=== PATIENT | female | born 1965 | race American Indian/Alaskan Native ===

== ENCOUNTER 2016-06-17 21:01 | Emergency (ER) | payer OTHER ==
--- NOTE | 2016-06-18 02:21 | Emergency Department Report ---
HPI - General Chief Complaint: Skin Rash Time Seen by Provider: 06/18/16 02:06 - HPI HPI: 50-year-old female presents to ED complaining of skin rash times a couple of months. Patient states she was recently seen last month at [facility] for the same skin rash. Patient states rash was resolved for a while and then they came right back. Patient states she's been taking Benadryl and using hydrocortisone cream to no relief. She states rash is very itchy in her all over her entire arms and internal legs bilaterally. She denies taking any medication other than aspirin. She denies any other medical condition. She denies fever/chills/nausea/vomiting/abdominal pain/chest pain or any other problems. ED Past Medical Hx - Past Medical History Previous Medical History?: Yes Hx Hypertension: Yes Hx Congestive Heart Failure: No Hx Diabetes: No Hx Asthma: No Hx COPD: No Additional medical history: Uterine fibroids - Surgical History Past Surgical History?: Yes Additional Surgical History: hysterectomy - Social History Smoking Status: Never Smoker - Medications Home Medications: Home Medications Medication Instructions Recorded Confirmed Last Taken Type Cyclobenzaprine [Flexeril] 10 mg PO BID 03/01/16 03/01/16 Unknown History HYDROcodone/APAP 7.5-325 [[place] 1 each PO QDAY 03/01/16 03/01/16 Unknown History 7.5/325] Hydrochlorothiazide [Hctz] 12.5 mg PO QDAY 03/01/16 03/01/16 Unknown History Ibuprofen [Motrin] 800 mg PO Q8HR PRN 03/01/16 03/01/16 Unknown History Meloxicam [Mobic] 7.5 mg PO BID 03/01/16 03/01/16 Unknown History Ranitidine HCl [Heartburn Relief] 150 mg PO BID 03/01/16 03/01/16 Unknown History Tramadol HCl [traMADol ER 100 MG] 50 mg PO QDAY 03/01/16 03/01/16 Unknown History methOCARBAMOL [Robaxin TAB] 500 mg PO TID 03/01/16 03/01/16 Unknown History Aspirin [Aspirin TAB] 325 mg PO QDAY tablet 03/04/16 Unknown Rx Prednisone [predniSONE 10 mg 10 mg PO .TAPER #1 tab.ds.pk 06/18/16 Unknown Rx (6-Day Pack, 21 Tabs)] Zinc Oxide [Boudreauxs] 1 applic TP TID PRN #1 tube 06/18/16 Unknown Rx hydrOXYzine HCL [Atarax] 50 mg PO QHS #40 tablet 06/18/16 Unknown Rx ED Review of Systems ROS: Stated complaint: FULL BODY RASH Other details as noted in HPI Comment: All other systems reviewed and negative Eyes: denies: eye pain, eye discharge, vision change ENT: denies: ear pain, throat pain Gastrointestinal: denies: abdominal pain, nausea, diarrhea Skin: rash, lesions, change in color, pruritus. denies: change in hair/nails Physical Exam - Physical Exam Vital Signs: Vital Signs 06/17/16 22:00 Temperature 98.4 F Pulse Rate 88 Blood Pressure 145/82 O2 Sat by Pulse 99 Oximetry Physical Exam: GENERAL: Alert and oriented x3, no apparent distress, Normal Gait, atraumatic. HEAD: Head is normocephalic and a-traumatic. EYES: Extra ocular muscles are intact. Pupils are equal, round, and reactive to light and accommodation. EARS: symetrical, atraumatic, non tender, ear canal clear and moderate cerumen, tympanic membrance non inflamed. gross auditory nml bilaterally. NOSE: Nose symetrical, Nontender,Nares appeared normal. MOUTH:Mouth is well hydrated and without lesions. Tonsils nonerythematous or swollen, Uvula midline, Tongue not elevated. Mucous membranes are moist. Posterior pharynx clear, no exudate or lesions. Patent airways. NECK: Supple. Non edematous, No carotid bruits. No lymphadenopathy or thyromegaly. LUNGS: Symetrical with respiration, No wheezing, no rales or crackles, CTAB. HEART: S1, S2 present, regular rate and rhythm without murmur, no rubs, no gallops. ABDOMEN: No organomegaly was noted,Positive bowel sounds, soft, and non- distended. . Nontender to palpation on all Quadrants, NO CVA tenderness. EXTREMITIES/MUSCULOSKELETAL: No cyanosis, clubbing, rash, lesions or edema. Full ROM bilaterally. UE/LE Pulses 2+ bilaterally. NEUROLOGIC: No focal Deficit, Cranial nerves II through XII are grossly intact. No loss of sensation, PSYCHIATRIC: Mood is congruent with affect, denies suicidal or homicidal ideations. SKIN: Warm and dry, hypopigmented macular papular generalized lesion on extensor surface of bilateral arm and in medial aspect of bilateral thighs. Nonerythematous, no indurations ED Course Vital Signs 06/17/16 22:00 Temperature 98.4 F Pulse Rate 88 Blood Pressure 145/82 O2 Sat by Pulse 99 Oximetry ED Medical Decision Making - Radiology Data Radiology results: report reviewed, image reviewed FINAL REPORT PROCEDURE: XR CHEST 1V AP TECHNIQUE: Chest radiograph anteroposterior view. CPT 87253 HISTORY: j carlos COMPARISON: No prior studies are available for comparison. FINDINGS: Heart: Normal. Mediastinum/Vessels: Normal. Lungs/Pleural space: Normal. Bony thorax: No acute osseous abnormality. Life support devices: None. IMPRESSION: No acute cardiopulmonary abnormality. Transcribed By: [facility] Dictated By: JC WRIGHT MD Electronically Authenticated By: JC WRIGHT MD Signed Date/Time: 06/18/16 0355 - Medical Decision Making 50-year-old female presents with unspecified rash ED course: Patient received Pepcid, Atarax, prednisone. Discussed with patient would need to be seen by stock counter for assessment of rash. Discuss home medication of prednisone and Atarax zinc ointment Discuss a follow-up. Surface Plate Finisher as referred. After nurse administered medication about 10 minutes after patient began having a panic attack. Chest x-ray was ordered. Chest x-ray shows normal exam: See above Patient began crying patient began shaking, stating that her left arm hurts, she was tachycardic with elevated blood pressure. 1 mg of Ativan administered IM. After about 30-45 minutes patient's vital return to normal. She was discharged after being monitored. Vital signs returned to normal. Critical care attestation.: If time is entered above; I have spent that time in minutes in the direct care of this critically ill patient, excluding procedure time. ED Disposition Clinical Impression: Rash and nonspecific skin eruption, Pityriasis rosea-like skin eruption Disposition: DISCHARGED TO HOME OR SELFCARE Is pt being admited?: No Does the pt Need Aspirin: No Condition: Stable Instructions: Zinc Oxide (On the skin), Urticaria (ED), Acute Rash (ED) Prescriptions: hydrOXYzine HCL [Atarax] 50 mg PO QHS #40 tablet Prednisone [predniSONE 10 mg (6-Day Pack, 21 Tabs)] 10 mg PO .TAPER #1 tab.ds.pk Zinc Oxide [Boudreauxs] 1 applic TP TID PRN #1 tube PRN Reason: Rash Referrals: LOS CHURCH MD [Staff Physician] - 3-5 Days ELLEN DIAS MD [Staff Physician] - 3-5 Days Forms: Accompanied Note, Work/School Release Form(ED) Time of Disposition: 02:48
[2016-06-18] MEDS ORDERED: PEPCID PO ONE (02:31)
[2016-06-18] MEDS ORDERED: ATARAX PO ONE (02:31)
[2016-06-18] MEDS ORDERED: ATIVAN ONE (03:08)
[2016-06-18] MEDS ORDERED: ATIVAN IM ONE (03:17)
--- NOTE | 2016-06-18 03:59 | XRay Report ---
FINAL REPORT PROCEDURE: XR CHEST 1V AP TECHNIQUE: Chest radiograph anteroposterior view. CPT 55846 HISTORY: j carlos COMPARISON: No prior studies are available for comparison. FINDINGS: Heart: Normal. Mediastinum/Vessels: Normal. Lungs/Pleural space: Normal. Bony thorax: No acute osseous abnormality. Life support devices: None. IMPRESSION: No acute cardiopulmonary abnormality.
[2016-06-18 04:56] VITALS: BP 126/68
== END 2016-06-18 04:56 | disposition home or self-care (01) ==
LOC: ED 21:01
DX: L42 Pityriasis rosea (principal); R21 Rash and other nonspecific skin eruption; I10 Essential (primary) hypertension; Z79.82 Long term (current) use of aspirin
CPT/HCPCS: 71010; 96372; 99283; J2060; J2920

== ENCOUNTER 2017-06-11 07:57 | Emergency (ER) | payer OTHER ==
[2017-06-11] MEDS ORDERED: TORADOL IM ONE (08:11)
[2017-06-11] MEDS ORDERED: ULTRAM PO ONE (08:11)
[2017-06-11] MEDS ORDERED: CATAPRES PO ONE (08:13)
[2017-06-11] MEDS ORDERED: DECADRON IM ONE (08:18)
--- NOTE | 2017-06-11 09:05 | Emergency Department Report ---
Chief Complaint: Back Pain/Injury Stated Complaint: BACK PAIN Time Seen by Provider: 06/11/17 08:11 - HPI History of Present Illness: This is a 51-year-old female that presents with acute on chronic back pain. He stated this morning she was unable to get up due to the back pain. Patient stated she had a fall incident 2 years ago and had this intermittent back pain. Patient stated that her pain radiates towards right sided abdominal pain. Patient stated also that the pain radiates towards left lower extremity. Vision denies any bladder or bowel stability. Patient stated it is difficult for her to walk and she believes she may have a kidney infection due to the severe pain. Patient denies any dysuria polyuria or any urinary symptoms. - Exam Vital Signs: Vital Signs 06/11/17 06/11/17 06/11/17 08:02 08:21 08:22 Temperature 98.7 F Pulse Rate 100 H 90 Respiratory 22 18 Rate Blood Pressure 139/118 O2 Sat by Pulse 100 Oximetry 06/11/17 08:23 Temperature Pulse Rate Respiratory 18 Rate Blood Pressure O2 Sat by Pulse Oximetry Physical Exam: GENERAL: The patient is a well-developed, well-nourished in no apparent distress. Patient is alert and acting appropriately for age. Alert and oriented 3, no apparent distress, normal gait, atraumatic. ABDOMEN: Soft. Slight tenderness on upper and lower right side abdomen. Positive bowel sounds. No hepatosplenomegaly was noted. No guarding or rebound tenderness, negative epigastric bruit. Negative psoas sign, negative saleem sign , negative McBurneys sign Back: Paraspinal and lumbar tenderness. no saddle anesthesia present. MSE screening note: Focused history and physical exam performed. Due to findings the following was ordered: 1- This initial assessment/diagnostic orders/clinical plan/ treatment(s) is/are subject to change based on pt's health status, clinical progression and re- assessment by fellow clinical providers in the ED. Further treatment and workup at subsequent clinical provers discretion. Patient/guardians urged not to elope from ED as their condition may be serious if not clinically assessed and managed. 2-CBC, BMP, hepatic panel, UA 3-patient received Toradol, Catapres, Ultram, and Decadron. 4-signed out to maintain side ED doctor. Patient discussed with doctor:: GE ERVIN ED Disposition for MSE Condition: Stable Referrals: PRIMARY CARE, [Primary Care Provider] - 3-5 Days
[2017-06-11 09:29] LABS: Basophils % (Auto) 0.3 % (0.0-1.8); Eosinophils # (Auto) 0.1 K/mm3 (0.0-0.4); Eosinophils % (Auto) 1.2 % (0.0-4.3); Hematocrit 33.9 % (30.3-42.9); Hemoglobin 10.3 gm/dl (10.1-14.3); Lymphocytes # (Auto) 1.3 K/mm3 (1.2-5.4); Lymphocytes % (Auto) 20.8 % (13.4-35.0); Mean Corpuscular HGB Conc 31 % (30-34); Mean Corpuscular Volume 74 fl (79-97); Monocytes # (Auto) 0.3 K/mm3 (0.0-0.8); Monocytes % (Auto) 5.4 % (0.0-7.3); Platelet Count 294 K/mm3 (140-440); Red Blood Count 4.57 M/mm3 (3.65-5.03); Red Cell Distribution Width 17.2 % (13.2-15.2)
[2017-06-11 09:33] LABS: Mean Corpuscular Hemoglobin 23 pg (28-32)
[2017-06-11 09:44] LABS: Alanine Aminotransferase 24 units/L (7-56); Albumin 3.9 g/dL (3.9-5); BUN/Creatinine Ratio 15; Blood Urea Nitrogen 12 mg/dL (7-17); Calcium 8.7 mg/dL (8.4-10.2); Hemolysis Index 3
[2017-06-11] MEDS ORDERED: SUBLIMAZE IV ONE (10:03)
[2017-06-11] MEDS ORDERED: ZOFRAN IV ONE (10:03)
--- NOTE | 2017-06-11 10:09 | Emergency Department Report ---
ED Abdominal Pain HPI - General Chief Complaint: Back Pain/Injury Stated Complaint: BACK PAIN Time Seen by Provider: 06/11/17 08:11 Source: patient, EMS Mode of arrival: Wheelchair Limitations: No Limitations - History of Present Illness Initial Comments: Patient is 51 years old -[place] female history of diabetes and chronic back pain secondary to injury 2 years ago. Patient presented to the ER with chief complaint of bilateral flank pain and lower back pain and abdominal pain no the suprapubic fullness comes and goes associated with nausea but no vomiting. Patient denied any fever. Patient is also complaining of generalized weakness. MD Complaint: abdominal pain -: days(s) Location: suprapubic, bilateral flank Migration to: no migration Severity scale (0 -10): 10 - Related Data Home Medications Medication Instructions Recorded Confirmed Last Taken Cyclobenzaprine [Flexeril] 10 mg PO BID 03/01/16 03/01/16 Unknown HYDROcodone/APAP 7.5-325 [[place] 1 each PO QDAY 03/01/16 03/01/16 Unknown 7.5/325] Hydrochlorothiazide [Hctz] 12.5 mg PO QDAY 03/01/16 03/01/16 Unknown Ibuprofen [Motrin] 800 mg PO Q8HR PRN 03/01/16 03/01/16 Unknown Meloxicam [Mobic] 7.5 mg PO BID 03/01/16 03/01/16 Unknown Ranitidine HCl [Heartburn Relief] 150 mg PO BID 03/01/16 03/01/16 Unknown Tramadol HCl [traMADol ER 100 MG] 50 mg PO QDAY 03/01/16 03/01/16 Unknown methOCARBAMOL [Robaxin TAB] 500 mg PO TID 03/01/16 03/01/16 Unknown Previous Rx's Medication Instructions Recorded Last Taken Type Aspirin [Aspirin TAB] 325 mg PO QDAY tablet 03/04/16 Unknown Rx Prednisone [predniSONE 10 mg 10 mg PO .TAPER #1 tab.ds.pk 06/18/16 Unknown Rx (6-Day Pack, 21 Tabs)] Zinc Oxide [[place]auxs] 1 applic TP TID PRN #1 tube 06/18/16 Unknown Rx hydrOXYzine HCL [Atarax] 50 mg PO QHS #40 tablet 06/18/16 Unknown Rx Allergies Allergy/AdvReac Type Severity Reaction Status Date / Time Penicillins Allergy Rash Verified 06/17/16 22:00 morphine AdvReac Unknown Unknown Verified 03/01/16 21:12 ED Review of Systems ROS: Stated complaint: BACK PAIN Other details as noted in HPI Comment: All other systems reviewed and negative Constitutional: denies: chills, fever Respiratory: denies: cough, shortness of breath, SOB with exertion Cardiovascular: denies: chest pain, palpitations Gastrointestinal: abdominal pain, nausea. denies: vomiting, diarrhea, constipation, hematemesis, melena Genitourinary: urgency, dysuria, frequency Musculoskeletal: back pain Neurological: headache, weakness. denies: numbness, paresthesias, confusion, abnormal gait, vertigo Psychiatric: denies: depression ED Past Medical Hx - Past Medical History Previous Medical History?: Yes Hx Hypertension: Yes Hx Congestive Heart Failure: No Hx Diabetes: No Hx Asthma: No Hx COPD: No Additional medical history: Uterine fibroids, Back pain/injury - Surgical History Past Surgical History?: Yes Additional Surgical History: hysterectomy - Social History Smoking Status: Never Smoker Substance Use Type: Alcohol - Medications Home Medications: Home Medications Medication Instructions Recorded Confirmed Last Taken Type Cyclobenzaprine [Flexeril] 10 mg PO BID 03/01/16 03/01/16 Unknown History HYDROcodone/APAP 7.5-325 [[place] 1 each PO QDAY 03/01/16 03/01/16 Unknown History 7.5/325] Hydrochlorothiazide [Hctz] 12.5 mg PO QDAY 03/01/16 03/01/16 Unknown History Ibuprofen [Motrin] 800 mg PO Q8HR PRN 03/01/16 03/01/16 Unknown History Meloxicam [Mobic] 7.5 mg PO BID 03/01/16 03/01/16 Unknown History Ranitidine HCl [Heartburn Relief] 150 mg PO BID 03/01/16 03/01/16 Unknown History Tramadol HCl [traMADol ER 100 MG] 50 mg PO QDAY 03/01/16 03/01/16 Unknown History methOCARBAMOL [Robaxin TAB] 500 mg PO TID 03/01/16 03/01/16 Unknown History Aspirin [Aspirin TAB] 325 mg PO QDAY tablet 03/04/16 Unknown Rx Prednisone [predniSONE 10 mg 10 mg PO .TAPER #1 tab.ds.pk 03/21/17 Unknown Rx (6-Day Pack, 21 Tabs)] Zinc Oxide [Boudreauxs] 1 applic TP TID PRN #1 tube 06/18/16 Unknown Rx hydrOXYzine HCL [Atarax] 50 mg PO QHS #40 tablet 06/18/16 Unknown Rx ED Physical Exam - General Limitations: No Limitations General appearance: alert, in no apparent distress - Head Head exam: Present: atraumatic, normocephalic - Eye Eye exam: Present: normal appearance, PERRL - ENT ENT exam: Present: normal exam, normal orophraynx, mucous membranes moist - Neck Neck exam: Present: normal inspection, full ROM. Absent: tenderness, meningismus, lymphadenopathy, thyromegaly - Respiratory Respiratory exam: Present: normal lung sounds bilaterally. Absent: respiratory distress, wheezes, rales, rhonchi, chest wall tenderness - Cardiovascular Cardiovascular Exam: Present: regular rate, normal rhythm, normal heart sounds - GI/Abdominal GI/Abdominal exam: Present: soft, tenderness, normal bowel sounds. Absent: distended, guarding, rebound, rigid, organomegaly, mass, bruit, pulsatile mass, hernia - Extremities Exam Extremities exam: Present: normal inspection, full ROM, normal capillary refill - Back Exam Back exam: Present: normal inspection, full ROM. Absent: tenderness, CVA tenderness (R), CVA tenderness (L), muscle spasm, paraspinal tenderness, vertebral tenderness, rash noted - Neurological Exam Neurological exam: Present: alert, oriented X3, CN II-XII intact, normal gait - Skin Skin exam: Present: warm, intact, normal color ED Course Vital Signs 06/11/17 06/11/17 06/11/17 08:02 08:21 08:22 Temperature 98.7 F Pulse Rate 100 H 90 Respiratory 22 18 Rate Blood Pressure 139/118 O2 Sat by Pulse 100 Oximetry 06/11/17 06/11/17 06/11/17 08:23 09:14 09:23 Temperature Pulse Rate Respiratory 18 Rate Blood Pressure 124/72 O2 Sat by Pulse 100 98 Oximetry 06/11/17 06/11/17 06/11/17 09:30 09:46 10:00 Temperature Pulse Rate Respiratory Rate Blood Pressure 142/79 142/79 123/67 O2 Sat by Pulse 97 99 100 Oximetry 06/11/17 06/11/17 11:56 12:01 Temperature Pulse Rate Respiratory Rate Blood Pressure 138/58 130/55 O2 Sat by Pulse Oximetry - Reevaluation(s) Reevaluation #1: 06/11/17 13:27 Patient stated that she is feeling much better. Abdominal pain resolved back pain completely resolved at this moment. I advised patient that she will need to have a primary care physician to follow up O for Dr. Cevallos. Patient stated that she will follow-up. ED Medical Decision Making - Lab Data Result diagrams: 06/11/17 09:19 06/11/17 09:19 - Radiology Data Radiology results: report reviewed Referring Physician: GE ERVIN Patient Name: MAKSIM ARCHER Date of : 1965 Sex: Female Report Date: 2017-06-11 Report Status: [place] [address] Cat Scan Report Signed Patient: MAKSIM ARCHER MR#: [id number] : 1965 Acct:[id number] Age/Sex: 51 / F ADM Date: 06/11/17 Loc: ED Attending Dr: Ordering Physician: GE ERVIN Date of Service: 06/11/17 Procedure(s): CT abdomen pelvis w con Accession Number(s): [id number] cc: GE ERVIN FINAL REPORT EXAM: CT ABDOMEN PELVIS W CON HISTORY: abdominal pain TECHNIQUE: CT abdomen and pelvis performed. Images extend from diaphragm to pubic symphysis. No oral contrast was administered. Images were obtained after the administration of IV contrast. Coronal and sagittal reformatted images were obtained. PRIORS: None. FINDINGS: The visualized aspects of the lung bases are clear. The visualized liver, spleen, pancreas, adrenal glands and kidneys demonstrate no significant abnormalities. There is no abdominal aortic aneurysm. There is no evidence of intestinal obstruction. The appendix is normal. There are no abnormal fluid collections seen. There is no free intraperitoneal air. There is no evidence of focal or diffuse inflammatory abnormality. The bladder is unremarkable. There is no abnormal pelvic mass or fluid collections seen. IMPRESSION: There is no acute abnormality identified. Transcribed By: [facility] Dictated By: MARIANNE FAYE MD Electronically Authenticated By: MARIANNE FAYE MD Signed Date/Time: 06/11/17 114 DD/ 114 TD/TT: 06/11/17 114 Critical care attestation.: If time is entered above; I have spent that time in minutes in the direct care of this critically ill patient, excluding procedure time. ED Disposition Clinical Impression: Abdominal pain, Back pain Disposition: -01 TO HOME OR SELFCARE Is pt being admited?: No Condition: Stable Instructions: Abdominal Pain (ED), Chronic Back Pain (ED) Referrals: SUNDEEP CEVALLOS MD [Referring] - 3-5 Days
[2017-06-11 10:14] LABS: Bilirubin,Direct < 0.2 mg/dL (0-0.2)
--- NOTE | 2017-06-11 11:46 | Cat Scan Report ---
FINAL REPORT EXAM: CT ABDOMEN PELVIS W CON HISTORY: abdominal pain TECHNIQUE: CT abdomen and pelvis performed. Images extend from diaphragm to pubic symphysis. No oral contrast was administered. Images were obtained after the administration of IV contrast. Coronal and sagittal reformatted images were obtained. PRIORS: None. FINDINGS: The visualized aspects of the lung bases are clear. The visualized liver, spleen, pancreas, adrenal glands and kidneys demonstrate no significant abnormalities. There is no abdominal aortic aneurysm. There is no evidence of intestinal obstruction. The appendix is normal. There are no abnormal fluid collections seen. There is no free intraperitoneal air. There is no evidence of focal or diffuse inflammatory abnormality. The bladder is unremarkable. There is no abnormal pelvic mass or fluid collections seen. IMPRESSION: There is no acute abnormality identified.
[2017-06-11 12:52] LABS: Bilirubin,Urine NEG (Negative); Blood,Urine NEG (Negative); Color,Urine Yellow (Yellow); Mucus,Urine FEW /HPF; Protein,Urine <15 mg/dL mg/dL (Negative); Urobilinogen,Urine < 2.0 mg/dL (<2.0)
[2017-06-11 13:58] VITALS: BP 111/48
== END 2017-06-11 14:00 | disposition home or self-care (01) ==
LOC: ED 07:57
DX: R10.9 Unspecified abdominal pain (principal); I10 Essential (primary) hypertension; E11.9 Type 2 diabetes mellitus without complications; Z88.6 Allergy status to analgesic agent; Z88.0 Allergy status to penicillin
CPT/HCPCS: 36415; 74177; 80048; 80074; 81001; 85025; 96372; 96374; 96375; 99284; J1100; J1885; J2405; J3010; Q9967

== ENCOUNTER 2017-08-14 12:04 | Emergency (ER) | payer SELFPAY ==
--- NOTE | 2017-08-14 12:47 | Emergency Department Report ---
HPI - General Chief Complaint: Altered Mental Status Time Seen by Provider: 08/14/17 12:18 - HPI HPI: Room 20 The patient is a 51-year-old female presenting with a chief complaint of altered mental status. Family states the patient began complaining of abdominal pain and back pain for the past weeks but has not sought medical attention. The patient's last known well time was this morning at 09:20 the patient's daughter left for an appointment. Another family member/friend came to the patient's home at approximately 10:20 and found the patient with slurred unintelligible speech. Family states they picked up the patient supporting her under each arm and slowly ambulated her to the car to come to the hospital. Family states the patient had a similar episode approximately 2 months ago requiring admission to the [facility]. Family is unaware of diagnosis Location: Mental state Duration: [See above] Quality: Altered Severity: [See above] Modifying factors: [see above] Context: [see above] Mode of transportation: [not driving] ED Past Medical Hx - Past Medical History Previous Medical History?: Yes Hx Hypertension: Yes Hx Diabetes: Yes Additional medical history: Uterine fibroids, Back pain/injury - Surgical History Past Surgical History?: Yes Additional Surgical History: hysterectomy - Family History Family history: no significant - Social History Smoking Status: Never Smoker Substance Use Type: None - Medications Home Medications: Home Medications Medication Instructions Recorded Confirmed Last Taken Type traMADol [Ultram 50 MG tab] 50 mg PO Q4HR PRN #14 tablet 06/11/17 08/14/17 Unknown Rx ED Review of Systems ROS: Stated complaint: UTI Other details as noted in HPI Comment: Unobtainable due to pts medical conditions Physical Exam - Physical Exam Vital Signs: Vital Signs 08/14/17 12:14 Temperature 98.9 F Pulse Rate 120 H Respiratory 20 Rate Blood Pressure 121/53 O2 Sat by Pulse 100 Oximetry Physical Exam: GENERAL: The patient is well-developed well-nourished female lying on stretcher , tearful, aphasic looking towards the right. [] HEENT: Normocephalic. Atraumatic. Extraocular motions are intact. Pupils 3-2 mm bilaterally NECK: Trachea midline CHEST/LUNGS: Clear to auscultation. There is no respiratory distress noted. HEART/CARDIOVASCULAR: Regular. There is no tachycardia. There is no gallop rub or murmur. ABDOMEN: Abdomen is soft, but appears to grimace when palpated in the left lower quadrant. There is no rebound or guarding. Patient has normal bowel sounds. There is no abdominal distention. SKIN: There is no rash. There is no edema. There is no diaphoresis. NEURO: The patient is awake but does not speak or attempt to speak when questioned. The patient is not cooperative with neurologic exam. Absent Babinski bilaterally. During observation the patient was seen at one point moving all extremities except for the right upper extremity. MUSCULOSKELETAL: There is no evidence of acute injury. NIHSS= 8 LOC a. Alert= 0 (+)Not alert but arousable to minor stimuli=1 Not alert requires repeated or strong stimuli to move= 2 Responds only reflex motor or unresponsive=3 b. asks month and age answers both correctly= 0 answers one correctly= 1 answers neither correctly= 2 Best Gaze normal= 0 abnormal in one or both but forced deviation or total paresis absent= 1 forced deviation or total gaze paresis= 2 Visual no visual loss= 0 partial hemianopia= 1 complete hemianopia= 2 bilateral hemianopia= 3 Facial Palsy normal= 0 minor paralysis= 1 partial paralysis= 2 complete paralysis= 3 Motor Arm no drift= 0 drift before 10 secs but doesnt hit bed= 1 some effort against gravity= 2 no effort against gravity= 3 (+)no movement= 4 Motor leg no drift= 0 drift before 5 secs but doesnt hit bed= 1 drifts to bed before 5 secs= 2 no effort against gravity= 3 no movement= 4 Limb ataxia absent=0 present in one limb= 1 present in two limbs= 2 Sensory normal= 0 mild sensory loss= 1 severe (unaware of being touched)= 2 Best language mild/some loss of fluency= 1 severe= 2 (+)mute= 3 Dysarthria normal= 0 slurs some words= 1 severe/unintelligible= 2 Extinction and Inattention no abnormality= 0 visual, tactile, auditory or personal inattention= 1 profound (doesnt recognize own hand or orients to only one side= 2 ED Course Vital Signs 08/14/17 12:14 Temperature 98.9 F Pulse Rate 120 H Respiratory 20 Rate Blood Pressure 121/53 O2 Sat by Pulse 100 Oximetry - Reevaluation(s) Reevaluation #1: 08/14/17 17:33 Patient is now moving right upper extremity and writing messages on a mobile phone jolanta to communicate with family ED Medical Decision Making - Lab Data Result diagrams: 08/14/17 12:25 08/14/17 12:25 Laboratory Tests 08/14/17 08/14/17 08/14/17 12:06 12:25 12:25 WBC 7.5 RBC 4.79 Hgb 10.9 Hct 35.4 MCV 74 L MCH 23 L MCHC 31 RDW 15.8 H Plt Count 263 Lymph % (Auto) 25.4 Ransom % (Auto) 5.6 Eos % (Auto) 0.8 Baso % (Auto) 0.3 Lymph # 1.9 Ransom # 0.4 Eos # 0.1 Baso # 0.0 Seg Neutrophils % 67.9 Seg Neutrophils # 5.1 PT 13.0 INR 0.94 APTT 31.3 Thrombin Time VBG pH Sodium Potassium Chloride Carbon Dioxide Anion Gap BUN Creatinine Estimated GFR BUN/Creatinine Ratio Glucose POC Glucose 350 H Calcium Total Creatine Kinase CK-MB (CK-2) CK-MB (CK-2) Rel Index Troponin T Urine Color Urine Turbidity Urine pH Ur Specific [place] Urine Protein Urine Glucose (UA) Urine Ketones Urine Blood Urine Nitrite Urine Bilirubin Urine Urobilinogen Ur Leukocyte Esterase Urine WBC (Auto) Urine RBC (Auto) U Epithel Cells (Auto) Urine Mucus Urine Opiates Screen Urine Methadone Screen Ur Barbiturates Screen Ur Phencyclidine Scrn Ur Amphetamines Screen U Benzodiazepines Scrn Urine Cocaine Screen U Marijuana (THC) Screen Drugs of Abuse Note Plasma/Serum Alcohol 08/14/17 08/14/17 08/14/17 12:25 12:25 12:36 WBC RBC Hgb Hct MCV MCH MCHC RDW Plt Count Lymph % (Auto) Ransom % (Auto) Eos % (Auto) Baso % (Auto) Lymph # Ransom # Eos # Baso # Seg Neutrophils % Seg Neutrophils # PT INR APTT Thrombin Time 17.0 VBG pH Sodium 132 L Potassium 4.1 Chloride 97.1 L Carbon Dioxide 22 Anion Gap 17 BUN 16 Creatinine 0.8 Estimated GFR > 60 BUN/Creatinine Ratio 20 Glucose 331 H POC Glucose 327 H Calcium 8.9 Total Creatine Kinase CK-MB (CK-2) CK-MB (CK-2) Rel Index Troponin T < 0.010 Urine Color Urine Turbidity Urine pH Ur Specific [place] Urine Protein Urine Glucose (UA) Urine Ketones Urine Blood Urine Nitrite Urine Bilirubin Urine Urobilinogen Ur Leukocyte Esterase Urine WBC (Auto) Urine RBC (Auto) U Epithel Cells (Auto) Urine Mucus Urine Opiates Screen Urine Methadone Screen Ur Barbiturates Screen Ur Phencyclidine Scrn Ur Amphetamines Screen U Benzodiazepines Scrn Urine Cocaine Screen U Marijuana (THC) Screen Drugs of Abuse Note Plasma/Serum Alcohol 08/14/17 08/14/17 08/14/17 13:08 13:08 14:01 WBC RBC Hgb Hct MCV MCH MCHC RDW Plt Count Lymph % (Auto) Ransom % (Auto) Eos % (Auto) Baso % (Auto) Lymph # Ransom # Eos # Baso # Seg Neutrophils % Seg Neutrophils # PT INR APTT Thrombin Time VBG pH 7.407 Sodium Potassium Chloride Carbon Dioxide Anion Gap BUN Creatinine Estimated GFR BUN/Creatinine Ratio Glucose POC Glucose Calcium Total Creatine Kinase CK-MB (CK-2) CK-MB (CK-2) Rel Index Troponin T Urine Color Yellow Urine Turbidity Clear Urine pH 5.0 Ur Specific [place] 1.016 Urine Protein <15 mg/dl Urine Glucose (UA) >=500 Urine Ketones Tr Urine Blood Neg Urine Nitrite Neg Urine Bilirubin Neg Urine Urobilinogen < 2.0 Ur Leukocyte Esterase Lg Urine WBC (Auto) 9.0 H Urine RBC (Auto) 4.0 U Epithel Cells (Auto) 1.0 Urine Mucus Few Urine Opiates Screen Presumptive negative Urine Methadone Screen Presumptive negative Ur Barbiturates Screen Presumptive negative Ur Phencyclidine Scrn Presumptive negative Ur Amphetamines Screen Presumptive negative U Benzodiazepines Scrn Presumptive negative Urine Cocaine Screen Presumptive negative U Marijuana (THC) Screen Presumptive negative Drugs of Abuse Note Disclamer Plasma/Serum Alcohol 08/14/17 08/14/17 14:01 14:01 WBC RBC Hgb Hct MCV MCH MCHC RDW Plt Count Lymph % (Auto) [place]ansom % (Auto) Eos % (Auto) Baso % (Auto) Lymph # Ransom # Eos # Baso # Seg Neutrophils % Seg Neutrophils # PT INR APTT Thrombin Time VBG pH Sodium Potassium Chloride Carbon Dioxide Anion Gap BUN Creatinine Estimated GFR BUN/Creatinine Ratio Glucose POC Glucose Calcium Total Creatine Kinase 167 H CK-MB (CK-2) 1.8 CK-MB (CK-2) Rel Index 1.0 Troponin T < 0.010 Urine Color Urine Turbidity Urine pH Ur Specific [place] Urine Protein Urine Glucose (UA) Urine Ketones Urine Blood Urine Nitrite Urine Bilirubin Urine Urobilinogen Ur Leukocyte Esterase Urine WBC (Auto) Urine RBC (Auto) U Epithel Cells (Auto) Urine Mucus Urine Opiates Screen Urine Methadone Screen Ur Barbiturates Screen Ur Phencyclidine Scrn Ur Amphetamines Screen U Benzodiazepines Scrn Urine Cocaine Screen U Marijuana (THC) Screen Drugs of Abuse Note Plasma/Serum Alcohol < 0.01 - EKG Data -: EKG Interpreted by Me EKG shows normal: sinus rhythm Rate: normal - EKG Data When compared to previous EKG there are: no significant change Interpretation: unchanged when compared t (03/02/2016) - Radiology Data Radiology results: report reviewed (CT abdomen and pelvis, CTA neck, CTA brain, CT head), image reviewed (CT head, CT abdomen and pelvis, CTA neck, CTA brain) [facility] [address] [id number] Cat Scan Report Signed Patient: MAKSIM ARCHER MR#: [id number] : 1965 Acct:[id number] Age/Sex: 51 / F ADM Date: 08/14/17 Loc: ED Attending Dr: Ordering Physician: PHOENIX VASQUEZ MD Date of Service: 08/14/17 Procedure(s): CT abdomen pelvis w con Accession Number(s): [id number] cc: PHOENIX VASQUEZ MD FINAL REPORT EXAM: CT ABDOMEN PELVIS W CON HISTORY: left lower quadrant tenderness TECHNIQUE: CT of the abdomen and pelvis with IV contrast. Coronal and sagittal reconstructed imaging provided. PRIORS: CT abdomen pelvis June 11, 2017. FINDINGS: Minimal scarring discoid subsegmental atelectasis in both lung bases. Heart is grossly unremarkable and unchanged compared to the prior. ABDOMEN: Fatty liver. No suspicious enhancement or lesions. Gallbladder, stomach, spleen, pancreas, and adrenals are unremarkable. Kidneys: Symmetrical cortical enhancement excretion. Right upper pole renal cyst is unchanged compared the prior. No hydronephrosis. IVC is unremarkable. No aortic aneurysm or dissection. No periaortic or retroperitoneal mass or adenopathy. [id number] stool. No wall thickening or inflammatory changes. Terminal ilium is unremarkable. Appendix is normal. Small bowel loops are unremarkable. No obstructive pattern. No free air. No free fluid. Mesentery is unremarkable. Fat-containing umbilical hernia without strangulation. PELVIS: Bladder is partially collapsed around a Luna catheter. The visualized portions are unremarkable. Patient appears to be status post hysterectomy. No pelvic mass or adenopathy. Inguinal regions are unremarkable. Bones: No suspicious osseous lesions on this limited examination of the skeleton. Metastatic disease better evaluated with bone scan. Degenerative changes are in the spine. IMPRESSION: Fatty liver. Similar to prior. Stable right renal cyst. Otherwise, no acute findings. Transcribed By: TYM Dictated By: MATTHEW LUZ MD Electronically Authenticated By: MATTHEW LUZ MD Signed Date/Time: 08/14/17 1558 DD/ 57 TD/TT: 08/14/171557 [address] [address] Cat Scan Report Signed Patient: MAKSIM ARCHER MR#: [id number] : 1965 Acct:[id number] Age/Sex: 51 / F ADM Date: 08/14/17 Loc: ED Attending Dr: Ordering Physician: PHOENIX VASQUEZ MD Date of Service: 08/14/17 Procedure(s): CT head/brain wo con Accession Number(s): [id number] cc: PHONEIX VASQUEZ MD CT scan of head without IV contrast: History: Neuro deficits. Findings: Ventricles are normal in size and midline in location. No evidence of acute ischemic, hemorrhage or mass. No extra axial fluid collection. Edema of the turbinates and mucosal edema of the ethmoid sinuses. Impression: No acute intracranial abnormality. Sinus disease. Transcribed By: PTP Dictated By: TIM MACIAS MD Electronically Authenticated By: TIM MACIAS MD Signed Date/Time: 08/14/17 1237 DD/ 1235 TD/TT: 08/14/[address] [address] Cat Scan Report Signed Patient: MAKSIM ARCHER MR#: [id number] : 1965 Acct:[id number] Age/Sex: 51 / F ADM Date: 08/14/17 Loc: ED Attending Dr: Ordering Physician: PHOENIX VASQUEZ MD Date of Service: 08/14/17 Procedure(s): CT angio neck Accession Number(s): [id number] cc: PHOENIX VASQUEZ MD FINAL REPORT EXAM: CT ANGIO NECK HISTORY: altered mental status, not moving right upper extr TECHNIQUE: CTA of the Head and Neck with IV contrast. Coronal and sagittal reconstructed imaging provided. Carotid stenosis calculated by the NASCET method. PRIORS: None currently available. FINDINGS: HEAD: Hypoplastic anterior, middle, and posterior cerebral arteries with slight irregularity is suspicious for vasculitis. Otherwise the anterior and posterior circulations are patent. No aneurysm. No dissection. No vascular malformation. There is no aneurysm, dissection, vascular malformation, or significant vascular stenosis. There is no evidence for vasculitis. NECK: RIGHT CAROTID: Origin: Unremarkable. Common: Unremarkable. Bifurcation: Unremarkable. Internal: Unremarkable. External: Unremarkable. There is no aneurysm, dissection, vascular malformation, or significant vascular stenosis. There is no evidence for vasculitis. LEFT CAROTID: Origin: Unremarkable. Common: Unremarkable. Bifurcation: Unremarkable. Internal: Unremarkable. External: Unremarkable. There is no aneurysm, dissection, vascular malformation, or significant vascular stenosis. There is no evidence for vasculitis. VERTEBRALS: Small but equally dominant. There is no aneurysm, dissection, vascular malformation, or significant vascular stenosis. There is no evidence for vasculitis. IMPRESSION: Slight irregularity and hypoplastic cerebral arteries may represent vasculitis versus anatomical variation. Intracranial vessels are patent Small bilateral vertebral arteries. Otherwise unremarkable CTA of the neck. Transcribed By: TYM Dictated By: MATTHEW LUZ MD Electronically Authenticated By: MATTHEW LUZ MD Signed Date/Time: 08/14/17 170 DD/ 99 TD/TT: 08/14/17 170 CTA head (read by radiologist) (-comparison is made to CTA of the head and neck dated 09/30/2015. Cerebral vessels are unchanged compared to the prior and the overall appears probably resents congenital variation. Please correlate for possible vasculitis - Differential Diagnosis CVA, ICH, altered mental status, diverticulitis and UTI Critical care attestation.: If time is entered above; I have spent that time in minutes in the direct care of this critically ill patient, excluding procedure time. ED Disposition Clinical Impression: Altered mental status Disposition: DC-09 OP ADMIT IP TO THIS HOSP Is pt being admited?: Yes Does the pt Need Aspirin: Yes Condition: Fair Referrals: PRIMARY CARE,MD [Primary Care Provider] - 3-5 Days Time of Disposition: 17:33 (hospitalist paged (Dr Lorenzo))
--- NOTE | 2017-08-14 12:58 | Cat Scan Report ---
CT scan of head without IV contrast: History: Neuro deficits. Findings: Ventricles are normal in size and midline in location. No evidence of acute ischemic, hemorrhage or mass. No extra axial fluid collection. Edema of the turbinates and mucosal edema of the ethmoid sinuses. Impression: No acute intracranial abnormality. Sinus disease.
[2017-08-14 13:18] LABS: BUN/Creatinine Ratio 20; Blood Urea Nitrogen 16 mg/dL (7-17); Calcium 8.9 mg/dL (8.4-10.2); Hemolysis Index 34
[2017-08-14 13:19] LABS: Basophils % (Auto) 0.3 % (0.0-1.8); Eosinophils # (Auto) 0.1 K/mm3 (0.0-0.4); Eosinophils % (Auto) 0.8 % (0.0-4.3); Hematocrit 35.4 % (30.3-42.9); Hemoglobin 10.9 gm/dl (10.1-14.3); Lymphocytes # (Auto) 1.9 K/mm3 (1.2-5.4); Lymphocytes % (Auto) 25.4 % (13.4-35.0); Mean Corpuscular HGB Conc 31 % (30-34); Mean Corpuscular Volume 74 fl (79-97); Monocytes # (Auto) 0.4 K/mm3 (0.0-0.8); Monocytes % (Auto) 5.6 % (0.0-7.3); Platelet Count 263 K/mm3 (140-440); Red Blood Count 4.79 M/mm3 (3.65-5.03); Red Cell Distribution Width 15.8 % (13.2-15.2)
[2017-08-14 13:23] LABS: Mean Corpuscular Hemoglobin 23 pg (28-32)
[2017-08-14 13:29] LABS: INR 0.94 (0.87-1.13)
[2017-08-14 13:30] LABS: Partial Thromboplastin Time 31.3 Sec. (24.2-36.6)
[2017-08-14 14:38] LABS: Bilirubin,Urine NEG (Negative); Blood,Urine NEG (Negative); Color,Urine Yellow (Yellow); Mucus,Urine FEW /HPF; Protein,Urine <15 mg/dL mg/dL (Negative); Urobilinogen,Urine < 2.0 mg/dL (<2.0)
[2017-08-14 14:40] LABS: Creatine Kinase MB 1.8 ng/mL (0.0-4.0)
[2017-08-14 14:45] LABS: Amphetamine Screen,Urine PRESUMPTIVE NEGATIVE; Benzodiazepines Screen,Urine PRESUMPTIVE NEGATIVE; Cannabinoid Screen,Urine PRESUMPTIVE NEGATIVE; Cocaine Screen,Urine PRESUMPTIVE NEGATIVE; Methadone Screen,Urine PRESUMPTIVE NEGATIVE; Opiate Screen,Urine PRESUMPTIVE NEGATIVE
--- NOTE | 2017-08-14 16:03 | Cat Scan Report ---
FINAL REPORT EXAM: CT ABDOMEN PELVIS W CON HISTORY: left lower quadrant tenderness TECHNIQUE: CT of the abdomen and pelvis with IV contrast. Coronal and sagittal reconstructed imaging provided. PRIORS: CT abdomen pelvis June 11, 2017. FINDINGS: Minimal scarring discoid subsegmental atelectasis in both lung bases. Heart is grossly unremarkable and unchanged compared to the prior. ABDOMEN: Fatty liver. No suspicious enhancement or lesions. Gallbladder, stomach, spleen, pancreas, and adrenals are unremarkable. Kidneys: Symmetrical cortical enhancement excretion. Right upper pole renal cyst is unchanged compared the prior. No hydronephrosis. IVC is unremarkable. No aortic aneurysm or dissection. No periaortic or retroperitoneal mass or adenopathy. Jxdd-ex-[id number] stool. No wall thickening or inflammatory changes. Terminal ilium is unremarkable. Appendix is normal. Small bowel loops are unremarkable. No obstructive pattern. No free air. No free fluid. Mesentery is unremarkable. Fat-containing umbilical hernia without strangulation. PELVIS: Bladder is partially collapsed around a Luna catheter. The visualized portions are unremarkable. Patient appears to be status post hysterectomy. No pelvic mass or adenopathy. Inguinal regions are unremarkable. Bones: No suspicious osseous lesions on this limited examination of the skeleton. Metastatic disease better evaluated with bone scan. Degenerative changes are in the spine. IMPRESSION: Fatty liver. Similar to prior. Stable right renal cyst. Otherwise, no acute findings.
--- NOTE | 2017-08-14 17:05 | Cat Scan Report ---
FINAL REPORT EXAM: CT ANGIO HEAD HISTORY: altered mental status, not moving right upper extr TECHNIQUE: CTA of the Head and Neck with IV contrast. Coronal and sagittal reconstructed imaging provided. Carotid stenosis calculated by the NASCET method. PRIORS: None currently available. FINDINGS: HEAD: Hypoplastic anterior, middle, and posterior cerebral arteries with slight irregularity is suspicious for vasculitis. Otherwise the anterior and posterior circulations are patent. No aneurysm. No dissection. No vascular malformation. There is no aneurysm, dissection, vascular malformation, or significant vascular stenosis. There is no evidence for vasculitis. NECK: RIGHT CAROTID: Origin: Unremarkable. Common: Unremarkable. Bifurcation: Unremarkable. Internal: Unremarkable. External: Unremarkable. There is no aneurysm, dissection, vascular malformation, or significant vascular stenosis. There is no evidence for vasculitis. LEFT CAROTID: Origin: Unremarkable. Common: Unremarkable. Bifurcation: Unremarkable. Internal: Unremarkable. External: Unremarkable. There is no aneurysm, dissection, vascular malformation, or significant vascular stenosis. There is no evidence for vasculitis. VERTEBRALS: Small but equally dominant. There is no aneurysm, dissection, vascular malformation, or significant vascular stenosis. There is no evidence for vasculitis. IMPRESSION: Slight irregularity and hypoplastic cerebral arteries may represent vasculitis versus anatomical variation. Intracranial vessels are patent Small bilateral vertebral arteries. Otherwise unremarkable CTA of the neck.
[2017-08-14] MEDS ORDERED: ULTRAM PO ONE (17:28)
[2017-08-14] MEDS ORDERED: ASPIRIN PO ONE (17:34)
--- NOTE | 2017-08-14 18:15 | History and Physical Report ---
Medications and Allergies Allergies Allergy/AdvReac Type Severity Reaction Status Date / Time Penicillins Allergy Rash Verified 06/17/16 22:00 morphine AdvReac Unknown Unknown Verified 03/01/16 21:12 Home Medications Medication Instructions Recorded Confirmed Last Taken Type traMADol [Ultram 50 MG tab] 50 mg PO Q4HR PRN #14 tablet 06/11/17 08/14/17 Unknown Rx Exam - Constitutional Vitals: Temp Pulse Resp BP Pulse Ox 98.7 F 96 H 18 123/66 99 08/14/17 13:00 08/14/17 16:27 08/14/17 16:27 08/14/17 16:27 08/14/17 16:27 Results - Labs CBC & Chem 7: 08/14/17 12:25 08/14/17 12:25 Labs: Abnormal lab results 08/14/17 08/14/17 08/14/17 Range/Units 12:06 12:25 12:25 MCV 74 L (79-97) fl MCH 23 L (28-32) pg RDW 15.8 H (13.2-15.2) % Sodium 132 L (137-145) mmol/L Chloride 97.1 L (98-107) mmol/L Glucose 331 H (65-100) mg/dL POC Glucose 350 H (70-105) Total Creatine Kinase (30-135) units/L Urine WBC (Auto) (0.0-6.0) /HPF 08/14/17 08/14/17 08/14/17 Range/Units 12:36 13:08 14:01 MCV (79-97) fl MCH (28-32) pg RDW (13.2-15.2) % Sodium (137-145) mmol/L Chloride (98-107) mmol/L Glucose (65-100) mg/dL POC Glucose 327 H (70-105) Total Creatine Kinase 167 H (30-135) units/L Urine WBC (Auto) 9.0 H (0.0-6.0) /HPF
[2017-08-14] MEDS ORDERED: LEVAQUIN PO ONE (20:44)
[2017-08-14 20:53] VITALS: BP 115/70
== END 2017-08-14 20:52 | disposition admitted as inpatient to this hospital (09) ==
LOC: ED 12:04
DX: R41.82 Altered mental status, unspecified (principal); I10 Essential (primary) hypertension; E11.9 Type 2 diabetes mellitus without complications
CPT/HCPCS: 36415; 70450; 70496; 70498; 74177; 80048; 80307; 81001; 82550; 82553; 82805; 82962; 84484; 85025; 85610; 85670; 85730; 93005; 93010; 99284; G0480; Q9967; 80320

== ENCOUNTER 2019-03-03 14:26 | Emergency (ER) | payer SELFPAY ==
[2019-03-03] MEDS ORDERED: SODIUM CHLORIDE 0.9% 500 ML 500 ML IV ONE ×2 (14:45→16:01)
--- NOTE | 2019-03-03 14:48 | Emergency Department Report ---
ED General Adult HPI - General Chief complaint: Altered Mental Status Stated complaint: AMS Time Seen by Provider: 03/03/19 14:41 Source: patient, EMS (EMS records not available for documentation or collateral information at this time), RN notes reviewed, old records reviewed Mode of arrival: Stretcher Limitations: Altered Mental Status - History of Present Illness Initial comments: The patient is a 53-year-old female. This patient does not known to this provider previously. We do not know who the patient's primary care doctor is. Apparently, the patient was diagnosed and treated for DVT and pulmonary embolism at another hospital recently. She is brought to the hospital by emergency medical services. Apparently, she was at the [facility], and became unresponsive, and altered. Her less than well time is not especially known. He r last known anticoagulants intake is unknown. EMS reported to nursing staff the patient is likely taking eliquis Family, patient was admitted to this hospital a few years ago for altered mental status and unresponsiveness. Patient had a negative CT scan of the brain, and negative MRI. She was discharged with aspirin therapy. In the emergency room, the patient is awake and follows commands. She complains of left-sided chest pain, left-sided abdominal pain, left arm pain and left leg pain. She complains of chronic left-sided rotator cuff shoulder pain. She cannot describe the qualitative nature of her symptoms, but indicates the pain increases with palpation or range of motion. Currently, no family or friends are available at this time for collateral information. -: This afternoon Radiation: other Quality: other Consistency: other Improves with: other Worsens with: other Associated Symptoms: other - Related Data Previous Rx's Medication Instructions Recorded Last Taken Type traMADoL [Ultram 50 MG tab] 50 mg PO Q4HR PRN #14 tablet 06/11/17 Unknown Rx Ciprofloxacin HCl [Ciprofloxacin 500 mg PO BID #14 tablet 08/14/17 Unknown Rx TAB] traMADoL [Ultram 50 MG tab] 50 mg PO Q8H PRN #30 tablet 03/03/19 Unknown Rx Allergies Allergy/AdvReac Type Severity Reaction Status Date / Time Penicillins Allergy Rash Verified 06/17/16 22:00 morphine AdvReac Unknown Unknown Verified 03/01/16 21:12 ED Review of Systems ROS: Stated complaint: AMS Other details as noted in HPI Comment: Unobtainable due to pts medical conditions Cardiovascular: chest pain Gastrointestinal: abdominal pain Neurological: confusion ED Past Medical Hx - Past Medical History Hx Hypertension: Yes Hx Congestive Heart Failure: No Hx Diabetes: Yes Hx Asthma: No Hx COPD: No Additional medical history: Uterine fibroids, Back pain/injury - Surgical History Additional Surgical History: hysterectomy - Social History Smoking Status: Unknown if ever smoked - Medications Home Medications: Home Medications Medication Instructions Recorded Confirmed Last Taken Type traMADoL [Ultram 50 MG tab] 50 mg PO Q4HR PRN #14 tablet 06/11/17 08/14/17 Unknown Rx Ciprofloxacin HCl [Ciprofloxacin 500 mg PO BID #14 tablet 08/14/17 Unknown Rx TAB] traMADoL [Ultram 50 MG tab] 50 mg PO Q8H PRN #30 tablet 03/03/19 Unknown Rx ED Physical Exam - General Limitations: Altered Mental Status General appearance: anxious - Head Head exam: Present: atraumatic, normocephalic - Eye Eye exam: Present: normal appearance, PERRL, EOMI. Absent: nystagmus - ENT ENT exam: Present: normal exam, normal orophraynx, mucous membranes moist, normal external ear exam - Neck Neck exam: Present: normal inspection, full ROM. Absent: tenderness, meningi smus - Respiratory Respiratory exam: Present: normal lung sounds bilaterally. Absent: respiratory distress - Cardiovascular Cardiovascular Exam: Present: regular rate, normal rhythm, normal heart sounds. Absent: bradycardia, tachycardia, irregular rhythm, systolic murmur, diastolic murmur, rubs, gallop - GI/Abdominal GI/Abdominal exam: Present: soft. Absent: distended, tenderness, guarding, rebound, pulsatile mass - Rectal Rectal exam: Present: normal inspection, normal rectal tone, other (chaperoned by nurse Daksha Cervantes). Absent: heme (-) stool, heme (+) stool, black stool, bloody stool - Extremities Exam Extremities exam: Present: normal inspection, full ROM, other (2+ pulses noted in the bilateral upper and lower extremities. There is no palpable cord. negative Homans sign. Muscular compartments are soft. The pelvis is stable.). Absent: pedal edema, joint swelling, calf tenderness - Back Exam Back exam: Present: normal inspection, full ROM. Absent: tenderness, CVA tenderness (R), CVA tenderness (L), paraspinal tenderness, vertebral tenderness - Neurological Exam Neurological exam: Present: altered, other (it is no facial droop. The tongue is midline. Patient speaking in partial sentences. She follows commands. She is moving 4 extremities spontaneously. Sensation is intact to light touch in 4 extremities.) - Psychiatric Psychiatric exam: Present: anxious - Skin Skin exam: Present: warm, dry, intact, normal color. Absent: rash ED Course Vital Signs 03/03/19 03/03/19 03/03/19 15:25 15:26 20:00 Temperature 98.1 F Pulse Rate 89 82 Respiratory 21 13 Rate Blood Pressure 154/86 115/73 [Right] O2 Sat by Pulse 99 98 99 Oximetry - Reevaluation(s) Reevaluation #1: 03/03/19 16:05 Differential diagnosis, including but not limited to: Arrhythmia, structural cardiac disease, pulmonary embolism, intracranial bleeding, cervical spine injury, AAA, retroperitoneal hematoma, conversion disorder Assessment and plan: 53-year-old female with unresponsiveness, now improving, with nonspecific chest pain, abdominal pain, and extremity pain. The patient is altered, but following commands, with reassuring vital signs. Her physical examination is fairly unremarkable. We have requested medical records from Krishan Mcneill. She is making requests for pain medicine, therefore, Pepcid is ordered. We will hold sedating and/or narcotic therapies. CT scan brain, cervical spine, abdomen pelvis pending, noncontrast. CT scan chest pending at this time. We will reassess after the patient's data points have resulted. 03/03/19 16:06 Reevaluation #2: 03/03/19 17:02 CT scan abdomen and pelvis is negative for acute disease. CT scan of the brain appears to be negative to my examination. EKG unchanged from prior. Objective laboratory testing unremarkable. Patient making multiple requests for pain medicine. Hospital physician, Dr. Mandi Gutierrez to come and evaluate patient ED Medical Decision Making - Lab Data Result diagrams: 03/03/19 15:00 03/03/19 15:00 Vital Signs 03/03/19 03/03/19 15:25 15:26 Temperature 98.1 F Pulse Rate 89 Respiratory 21 Rate Blood Pressure 154/86 [Right] O2 Sat by Pulse 99 98 Oximetry Lab Results 03/03/19 03/03/19 03/03/19 Range/Units 15:00 15:00 15:00 WBC 6.0 (4.5-11.0) K/mm3 RBC 4.21 (3.65-5.03) M/mm3 Hgb 10.5 (10.1-14.3) gm/dl Hct 33.5 (30.3-42.9) % MCV 80 (79-97) fl MCH 25 L (28-32) pg MCHC 31 (30-34) % RDW 15.2 (13.2-15.2) % Plt Count 282 (140-440) K/mm3 Lymph % (Auto) 28.1 (13.4-35.0) % [place] % (Auto) 6.1 (0.0-7.3) % Eos % (Auto) 1.5 (0.0-4.3) % Baso % (Auto) 0.4 (0.0-1.8) % Lymph # 1.7 (1.2-5.4) K/mm3 [place] # 0.4 (0.0-0.8) K/mm3 Eos # 0.1 (0.0-0.4) K/mm3 Baso # 0.0 (0.0-0.1) K/mm3 Seg Neutrophils % 63.9 (40.0-70.0) % Seg Neutrophils # 3.8 (1.8-7.7) K/mm3 PT (12.2-14.9) Sec. INR (0.87-1.13) APTT (24.2-36.6) Sec. Sodium 140 (137-145) mmol/L Potassium 4.3 (3.6-5.0) mmol/L Chloride 104.6 (98-107) mmol/L Carbon Dioxide 26 (22-30) mmol/L Anion Gap 14 mmol/L BUN 15 (7-17) mg/dL Creatinine 0.7 (0.7-1.2) mg/dL Estimated GFR > 60 ml/min BUN/Creatinine Ratio 21 % Glucose 114 H (65-100) mg/dL Lactic Acid 1.20 (0.7-2.0) mmol/L Calcium 9.1 (8.4-10.2) mg/dL Magnesium (1.7-2.3) mg/dL Total Bilirubin 0.20 (0.1-1.2) mg/dL AST 21 (5-40) units/L ALT 16 (7-56) units/L Alkaline Phosphatase 113 (35-129) units/L Ammonia (25-60) umol/L Total Creatine Kinase 188 H (30-135) units/L Troponin T < 0.010 (0.00-0.029) ng/mL Total Protein 7.0 (6.3-8.2) g/dL Albumin 3.9 (3.9-5) g/dL Albumin/Globulin Ratio 1.3 % TSH (0.270-4.200) mlU/mL Urine Bilirubin (Negative) Salicylates (2.8-20.0) mg/dL Urine Opiates Screen Urine Methadone Screen Acetaminophen (10.0-30.0) ug/mL Ur Barbiturates Screen Ur Phencyclidine Scrn Ur Amphetamines Screen U Benzodiazepines Scrn Urine Cocaine Screen U Marijuana (THC) Screen Drugs of Abuse Note Plasma/Serum Alcohol (0-0.07) % Blood Type Antibody Screen 03/03/19 03/03/19 03/03/19 Range/Units 15:00 15:00 15:00 WBC (4.5-11.0) K/mm3 RBC (3.65-5.03) M/mm3 Hgb (10.1-14.3) gm/dl Hct (30.3-42.9) % MCV (79-97) fl MCH (28-32) pg MCHC (30-34) % RDW (13.2-15.2) % Plt Count (140-440) K/mm3 Lymph % (Auto) (13.4-35.0) % [place] % (Auto) (0.0-7.3) % Eos % (Auto) (0.0-4.3) % Baso % (Auto) (0.0-1.8) % Lymph # (1.2-5.4) K/mm3 [place] # (0.0-0.8) K/mm3 Eos # (0.0-0.4) K/mm3 Baso # (0.0-0.1) K/mm3 Seg Neutrophils % (40.0-70.0) % Seg Neutrophils # (1.8-7.7) K/mm3 PT (12.2-14.9) Sec. INR (0.87-1.13) APTT (24.2-36.6) Sec. Sodium (137-145) mmol/L Potassium (3.6-5.0) mmol/L Chloride (98-107) mmol/L Carbon Dioxide (22-30) mmol/L Anion Gap mmol/L BUN (7-17) mg/dL Creatinine (0.7-1.2) mg/dL Estimated GFR ml/min BUN/Creatinine Ratio % Glucose (65-100) mg/dL Lactic Acid (0.7-2.0) mmol/L Calcium (8.4-10.2) mg/dL Magnesium (1.7-2.3) mg/dL Total Bilirubin (0.1-1.2) mg/dL AST (5-40) units/L ALT (7-56) units/L Alkaline Phosphatase (35-129) units/L Ammonia (25-60) umol/L Total Creatine Kinase (30-135) units/L Troponin T (0.00-0.029) ng/mL Total Protein (6.3-8.2) g/dL Albumin (3.9-5) g/dL Albumin/Globulin Ratio % TSH 1.280 (0.270-4.200) mlU/mL Urine Bilirubin (Negative) Salicylates < 0.3 L (2.8-20.0) mg/dL Urine Opiates Screen Urine Methadone Screen Acetaminophen < 5.0 L (10.0-30.0) ug/mL Ur Barbiturates Screen Ur Phencyclidine Scrn Ur Amphetamines Screen U Benzodiazepines Scrn Urine Cocaine Screen U Marijuana (THC) Screen Drugs of Abuse Note Plasma/Serum Alcohol (0-0.07) % Blood Type Antibody Screen 03/03/19 03/03/19 03/03/19 Range/Units 15:00 15:00 15:00 WBC (4.5-11.0) K/mm3 RBC (3.65-5.03) M/mm3 Hgb (10.1-14.3) gm/dl Hct (30.3-42.9) % MCV (79-97) fl MCH (28-32) pg MCHC (30-34) % RDW (13.2-15.2) % Plt Count (140-440) K/mm3 Lymph % (Auto) (13.4-35.0) % [place] % (Auto) (0.0-7.3) % Eos % (Auto) (0.0-4.3) % Baso % (Auto) (0.0-1.8) % Lymph # (1.2-5.4) K/mm3 [place] # (0.0-0.8) K/mm3 Eos # (0.0-0.4) K/mm3 Baso # (0.0-0.1) K/mm3 Seg Neutrophils % (40.0-70.0) % Seg Neutrophils # (1.8-7.7) K/mm3 PT (12.2-14.9) Sec. INR (0.87-1.13) APTT (24.2-36.6) Sec. Sodium (137-145) mmol/L Potassium (3.6-5.0) mmol/L Chloride (98-107) mmol/L Carbon Dioxide (22-30) mmol/L Anion Gap mmol/L BUN (7-17) mg/dL Creatinine (0.7-1.2) mg/dL Estimated GFR ml/min BUN/Creatinine Ratio % Glucose (65-100) mg/dL Lactic Acid (0.7-2.0) mmol/L Calcium (8.4-10.2) mg/dL Magnesium 1.70 (1.7-2.3) mg/dL Total Bilirubin (0.1-1.2) mg/dL AST (5-40) units/L ALT (7-56) units/L Alkaline Phosphatase (35-129) units/L Ammonia (25-60) umol/L Total Creatine Kinase (30-135) units/L Troponin T (0.00-0.029) ng/mL Total Protein (6.3-8.2) g/dL Albumin (3.9-5) g/dL Albumin/Globulin Ratio % TSH (0.270-4.200) mlU/mL Urine Bilirubin (Negative) Salicylates (2.8-20.0) mg/dL Urine Opiates Screen Urine Methadone Screen Acetaminophen (10.0-30.0) ug/mL Ur Barbiturates Screen Ur Phencyclidine Scrn Ur Amphetamines Screen U Benzodiazepines Scrn Urine Cocaine Screen U Marijuana (THC) Screen Drugs of Abuse Note Plasma/Serum Alcohol < 0.01 (0-0.07) % Blood Type A POSITIVE Antibody Screen Negative 03/03/19 03/03/19 03/03/19 Range/Units 15:02 15:02 Unknown WBC (4.5-11.0) K/mm3 RBC (3.65-5.03) M/mm3 Hgb (10.1-14.3) gm/dl Hct (30.3-42.9) % MCV (79-97) fl MCH (28-32) pg MCHC (30-34) % RDW (13.2-15.2) % Plt Count (140-440) K/mm3 Lymph % (Auto) (13.4-35.0) % [place] % (Auto) (0.0-7.3) % Eos % (Auto) (0.0-4.3) % Baso % (Auto) (0.0-1.8) % Lymph # (1.2-5.4) K/mm3 [place] # (0.0-0.8) K/mm3 Eos # (0.0-0.4) K/mm3 Baso # (0.0-0.1) K/mm3 Seg Neutrophils % (40.0-70.0) % Seg Neutrophils # (1.8-7.7) K/mm3 PT 14.5 (12.2-14.9) Sec. INR 1.14 H (0.87-1.13) APTT 32.3 (24.2-36.6) Sec. Sodium (137-145) mmol/L Potassium (3.6-5.0) mmol/L Chloride (98-107) mmol/L Carbon Dioxide (22-30) mmol/L Anion Gap mmol/L BUN (7-17) mg/dL Creatinine (0.7-1.2) mg/dL Estimated GFR ml/min BUN/Creatinine Ratio % Glucose (65-100) mg/dL Lactic Acid (0.7-2.0) mmol/L Calcium (8.4-10.2) mg/dL Magnesium (1.7-2.3) mg/dL Total Bilirubin (0.1-1.2) mg/dL AST (5-40) units/L ALT (7-56) units/L Alkaline Phosphatase (35-129) units/L Ammonia (25-60) umol/L Total Creatine Kinase (30-135) units/L Troponin T (0.00-0.029) ng/mL Total Protein (6.3-8.2) g/dL Albumin (3.9-5) g/dL Albumin/Globulin Ratio % TSH (0.270-4.200) mlU/mL Urine Bilirubin Neg (Negative) Salicylates (2.8-20.0) mg/dL Urine Opiates Screen Presumptive negative Urine Methadone Screen Presumptive negative Acetaminophen (10.0-30.0) ug/mL Ur Barbiturates Screen Presumptive negative Ur Phencyclidine Scrn Presumptive negative Ur Amphetamines Screen Presumptive negative U Benzodiazepines Scrn Presumptive negative Urine Cocaine Screen Presumptive negative U Marijuana (THC) Screen Presumptive negative Drugs of Abuse Note Disclamer Plasma/Serum Alcohol (0-0.07) % Blood Type Antibody Screen 03/03/19 Range/Units Unknown WBC (4.5-11.0) K/mm3 RBC (3.65-5.03) M/mm3 Hgb (10.1-14.3) gm/dl Hct (30.3-42.9) % MCV (79-97) fl MCH (28-32) pg MCHC (30-34) % RDW (13.2-15.2) % Plt Count (140-440) K/mm3 Lymph % (Auto) (13.4-35.0) % [place] % (Auto) (0.0-7.3) % Eos % (Auto) (0.0-4.3) % Baso % (Auto) (0.0-1.8) % Lymph # (1.2-5.4) K/mm3 [place] # (0.0-0.8) K/mm3 Eos # (0.0-0.4) K/mm3 Baso # (0.0-0.1) K/mm3 Seg Neutrophils % (40.0-70.0) % Seg Neutrophils # (1.8-7.7) K/mm3 PT (12.2-14.9) Sec. INR (0.87-1.13) APTT (24.2-36.6) Sec. Sodium (137-145) mmol/L Potassium (3.6-5.0) mmol/L Chloride (98-107) mmol/L Carbon Dioxide (22-30) mmol/L Anion Gap mmol/L BUN (7-17) mg/dL Creatinine (0.7-1.2) mg/dL Estimated GFR ml/min BUN/Creatinine Ratio % Glucose (65-100) mg/dL Lactic Acid (0.7-2.0) mmol/L Calcium (8.4-10.2) mg/dL Magnesium (1.7-2.3) mg/dL Total Bilirubin (0.1-1.2) mg/dL AST (5-40) units/L ALT (7-56) units/L Alkaline Phosphatase (35-129) units/L Ammonia 47.0 (25-60) umol/L Total Creatine Kinase (30-135) units/L Troponin T (0.00-0.029) ng/mL Total Protein (6.3-8.2) g/dL Albumin (3.9-5) g/dL Albumin/Globulin Ratio % TSH (0.270-4.200) mlU/mL Urine Bilirubin (Negative) Salicylates (2.8-20.0) mg/dL Urine Opiates Screen Urine Methadone Screen Acetaminophen (10.0-30.0) ug/mL Ur Barbiturates Screen Ur Phencyclidine Scrn Ur Amphetamines Screen U Benzodiazepines Scrn Urine Cocaine Screen U Marijuana (THC) Screen Drugs of Abuse Note Plasma/Serum Alcohol (0-0.07) % Blood Type Antibody Screen - EKG Data -: EKG Interpreted by Ri EKG shows normal: sinus rhythm Rate: normal - EKG Data 03/03/19 17:01 EKG shows a sinus rhythm, 82 bpm, there is a left axis deviation, the QTC is prolonged, there is poor R-wave progression, nonspecific T-wave abnormalities, the EKG is abnormal, the EKG is unchanged from prior, the EKG is not consistent with ST elevation myocardial infarction. - Radiology Data Radiology results: report reviewed, image reviewed Print Report Referring Physician: CARROLL ROYAL Patient Name: MAKSIM ARCHER Date of : 1965 Sex: Female Report Date: 2019-03-03 Report Status: Finalized Findings [facility] [address] [place] [address] XRay Report Signed Patient: MAKSIM ARCHER MR#: [id number] : 1965 Acct:[id number] Age/Sex: 53 / F ADM Date: 03/03/19 Loc: ED Attending Dr: Ordering Physician: CARROLL ROYAL MD Date of Service: 03/03/19 Procedure(s): XR chest 1V ap Accession Number(s): [id number] cc: CARROLL ROYAL MD Fluoro Time In Minutes: CHEST 1 VIEW INDICATION: Altered Mental Status. COMPARISON: 06/18/2016 FINDINGS: Support devices: None. Heart: Within normal limits. Lungs/Pleura: No acute air space or interstitial disease. Additional findings: None. IMPRESSION: No acute findings. Signer Name: John Vazquez Jr, MD Signed: 03/03/2019 3:22 PM Workstation Name: [id number] Transcribed By: TTR Dictated By: JOHN VAZQUEZ JR, MD Electronically Authenticated By: JOHN VAZQUEZ JR, MD Signed Date/Time: 03/03/19 1522 DD/ 1521 TD/TT: Critical care attestation.: If time is entered above; I have spent that time in minutes in the direct care of this critically ill patient, excluding procedure time. ED Disposition Clinical Impression: History of syncope, Mental status alteration Disposition: - OP ADMIT IP TO THIS HOSP Is pt being admited?: Yes Condition: Fair Instructions: Degenerative Disc Disease (ED) Prescriptions: traMADoL [Ultram 50 MG tab] 50 mg PO Q8H PRN #30 tablet PRN Reason: Pain Referrals: PRIMARY CARE, [Primary Care Provider] - 3-5 Days Forms: Work/School Release Form(ED)
[2019-03-03] MEDS ORDERED: FAMOTIDINE 20 MG/2 ML INJ IV ONE ×2 (15:18→15:20)
--- NOTE | 2019-03-03 15:26 | XRay Report ---
CHEST 1 VIEW INDICATION: Altered Mental Status. COMPARISON: 06/18/2016 FINDINGS: Support devices: None. Heart: Within normal limits. Lungs/Pleura: No acute air space or interstitial disease. Additional findings: None. IMPRESSION: No acute findings. Signer Name: John Dia Jr, MD Signed: 03/03/2019 3:22 PM Workstation Name: [id number]
[2019-03-03 15:32] LABS: Bilirubin,Urine NEG (Negative); Blood,Urine NEG (Negative); Color,Urine Yellow (Yellow); Mucus,Urine FEW /HPF; Protein,Urine <15 mg/dL mg/dL (Negative); Urobilinogen,Urine < 2.0 mg/dL (<2.0)
[2019-03-03 15:33] LABS: Basophils % (Auto) 0.4 % (0.0-1.8); Eosinophils # (Auto) 0.1 K/mm3 (0.0-0.4); Eosinophils % (Auto) 1.5 % (0.0-4.3); Hematocrit 33.5 % (30.3-42.9); Hemoglobin 10.5 gm/dl (10.1-14.3); Lymphocytes # (Auto) 1.7 K/mm3 (1.2-5.4); Lymphocytes % (Auto) 28.1 % (13.4-35.0); Mean Corpuscular HGB Conc 31 % (30-34); Mean Corpuscular Volume 80 fl (79-97); Monocytes # (Auto) 0.4 K/mm3 (0.0-0.8); Monocytes % (Auto) 6.1 % (0.0-7.3); Platelet Count 282 K/mm3 (140-440); Red Blood Count 4.21 M/mm3 (3.65-5.03); Red Cell Distribution Width 15.2 % (13.2-15.2)
[2019-03-03 15:41] LABS: Amphetamine Screen,Urine PRESUMPTIVE NEGATIVE; Benzodiazepines Screen,Urine PRESUMPTIVE NEGATIVE; Cannabinoid Screen,Urine PRESUMPTIVE NEGATIVE; Cocaine Screen,Urine PRESUMPTIVE NEGATIVE; Methadone Screen,Urine PRESUMPTIVE NEGATIVE; Opiate Screen,Urine PRESUMPTIVE NEGATIVE
[2019-03-03 15:42] LABS: Alanine Aminotransferase 16 units/L (7-56); Albumin 3.9 g/dL (3.9-5); BUN/Creatinine Ratio 21; Blood Urea Nitrogen 15 mg/dL (7-17); Calcium 9.1 mg/dL (8.4-10.2); Hemolysis Index 71
[2019-03-03 15:42] LABS: INR 1.14 (0.87-1.13)
[2019-03-03 15:43] LABS: Partial Thromboplastin Time 32.3 Sec. (24.2-36.6)
--- NOTE | 2019-03-03 16:58 | Cat Scan Report ---
CT abdomen pelvis wo con INDICATION: ams left sided pain on eliquis. TECHNIQUE: All CT scans at this location are performed using the following dose modulation technique: Automated exposure control. CONTRAST: None. COMPARISON: None available. CT ABDOMEN: The parenchymal organs are unremarkable in appearance. Negative for abdominal mass, fluid or inflammation. The bowel is not dilated or thickened. A normal appendix is identified. CT PELVIS: Negative for distal ureteral stone, pelvic fluid collection or inflammation. Status post previous hysterectomy. IMPRESSION: Negative for obstruction or localized inflammation. Signer Name: Tain Goyal MD Signed: 03/03/2019 4:53 PM Workstation Name: [id number]
--- NOTE | 2019-03-03 17:18 | Cat Scan Report ---
NONENHANCED CT SCAN OF THE HEAD: CT head/brain wo con INDICATION / CLINICAL INFORMATION: 53 years Female; Altered Mental Status. TECHNIQUE: Routine CT head without contrast. All CT scans at this location are performed using CT dos e reduction for ALARA by means of automated exposure control. COMPARISON: CT scan of the brain from 08/14/2017 FINDINGS: BRAIN / INTRACRANIAL CONTENTS: No acute hemorrhage, mass effect, midline shift, hydrocephalus, or acu te, large territorial infarct. No chronic infarct or focal atrophy. Normal brain volume and ventricul ar/sulcal size for age. No significant white matter abnormality. CRANIOCERVICAL JUNCTION: No significant abnormality. ORBITS: No significant abnormality of visualized orbits. SINUSES / MASTOIDS: No significant abnormality of the visualized paranasal sinuses or mastoid air ricardo ls. ADDITIONAL FINDINGS: None. IMPRESSION: I do not see focal lesion in the brain CT findings remain unchanged. Signer Name: Kirsty Zhou MD Signed: 03/03/2019 5:13 PM Workstation Name: [id number]
--- NOTE | 2019-03-03 17:21 | Cat Scan Report ---
Exam: CT cervical spine History: AMS unknown if trauma; Technique: Contiguous thin cut axial images obtained through the cervical spine. Sagittal and garcia l reconstructions performed by the technologist. All CT scans at this location are performed using CT dose reduction for ALARA by means of automated exposure control. Findings: No priors. There is no evidence of fracture or traumatic subluxation. Vertebral bodies are normal in height and alignment. Intervertebral disc spaces are well-maintained. Focal midline bulging disc is seen at C2-C3 and C3-C4 disc levels. At both levels, neuroforamina are normal. At C5-C6 disc level, large bony spur is seen on the left side. Left neural foramen is stenotic. Dural sac and the spinal cord are displaced. Broad-based disc osteophyte complex is seen at C6-C7 level. Both neuroforamina are narrowed. C7-T1 disc space is normal. Surrounding soft tissues are grossly normal. Impression: No signs of acute bony trauma to the cervical spine. Large bony spur at C5-C6 disc level on the left side narrowing the left neuroforamen Broad-based disc osteophyte complex at C6-C7 level resulting in bilateral foraminal stenoses Signer Name: Kirsty Zhou MD Signed: 03/03/2019 5:17 PM Workstation Name: [id number]
--- NOTE | 2019-03-03 19:21 | Event Note ---
Date: 03/03/19 C/o LOC Very poor historian O/e awake and alert Able to walk Has Low back pain Diagnosis--DDD Possibe Lumbar radiculopathy Discharge home on Ultracer 37.5/325
[2019-03-03 20:00] VITALS: BP 115/73
--- NOTE | 2019-03-03 20:03 | Cat Scan Report ---
Nonenhanced CT scan of the lumbar spine: HISTORY: Low back pain COMPARISON: None TECHNIQUE: CT images of the lumbar spine were obtained without contrast. Sagittal and coronal reform ats were post-processed.All CT scans at this location are performed using CT dose reduction for ALARA by means of automated exposure control. CONTRAST: None FINDINGS: Alignment: Normal. No traumatic subluxation. Vertebrae:No significant abnormality. No fracture. Disc Spaces: No significant abnormality allowing for lack of intrathecal contrast. T11-T12 and T12-L1 disc spaces are normal. Anterior bridging osteophytes are seen at L1-L2 and L2-L3 disc levels. L1-L2, L2-L3 disc spaces are normal. At L3-L4 disc level, facet joint hypertrophic changes are seen bilaterally. Bulging disc is seen. Lef t neural foramen is narrowed. At L4-L5 disc level, marked facet joint hypertrophic changes are seen bilaterally. Calcified hypertr ophied ligaments are seen. Bulging disc is seen. Dural sac is stenotic. Both lateral recesses and to a lesser degree neural foramina are narrowed. L5-S1 disc space is normal. Facet Joints:Marked facet joint hypertrophic changes at L4-L5 disc level Additional Findings: None IMPRESSION: Bony canal stenoses, lateral recess stenoses and to a lesser degree neural foraminal stenoses at L4-L 5 disc level Left foraminal stenoses at L3-L4 disc level Signer Name: Kirsty Zhou MD Signed: 03/03/2019 7:59 PM Workstation Name: [id number]
== END 2019-03-03 20:23 | disposition admitted as inpatient to this hospital (09) ==
LOC: ED 14:26
DX: R41.82 Altered mental status, unspecified (principal); R07.9 Chest pain, unspecified; R10.9 Unspecified abdominal pain; R55 Syncope and collapse; I10 Essential (primary) hypertension; E11.9 Type 2 diabetes mellitus without complications
CPT/HCPCS: 36415; 70450; 71045; 72125; 72131; 74176; 80053; 80307; 81001; 82140; 82271; 82550; 83735; 84443; 84484; 85025; 85379; 85610; 85730; 86850; 86900; 86901; 87086; 93005; 93010; 96361; 96374; 99285; J7040; 80320; G0480